=== PATIENT | female | born 1950 | race Caucasian/White ===

== ENCOUNTER 2017-08-10 12:41 | Outpatient (CLI) | payer MEDICARE ==
--- NOTE | 2017-08-10 15:40 | MRI ---
PRE AND POST CONTRAST ENHANCED MRI IMAGES OF THE BRAIN: History: Vertigo for three years. History of fall. Technique: Multiplanar, multisequence pre and post contrast enhanced MRI images were obtained of the brain. FINDINGS: Images demonstrate the brain to be unremarkable. No evidence of intracranial masses, hemorrhages, str okes or contusions seen. Ventricles are of normal size. Normal flow voids seen in the major intracranial vessels. IMPRESSION: Unremarkable pre and post contrast enhanced MR images of the brain. POS: [place]
== END 2017-08-10 12:42 | disposition home or self-care (01) ==
LOC: TBSIIMAG 12:41
PROVIDERS: ATTEND Psychiatry & Neurology Neurology
DX: R42 Dizziness and giddiness (principal)
CPT/HCPCS: 70553; 82565

== ENCOUNTER 2018-09-28 12:28 | Emergency (ER) | payer MEDICARE ==
[2018-09-28] MEDS ORDERED: Acetaminophen 500 MG TAB ONE (13:10)
--- NOTE | 2018-09-28 13:36 | RAD ---
2 VIEWS CHEST: Date: 09/28/18 PROVIDED CLINICAL HISTORY: Trauma. FINDINGS: Cardiac and mediastinal silhouette is within normal limits. No focal consolidation, pleural fluid, or pneumothorax apparent. Cholecystectomy clips overlie the right upper quadrant. IMPRESSION: No evidence for an acute cardiopulmonary process. POS: OFF
== END 2018-09-28 13:50 | disposition home or self-care (01) ==
LOC: ERS 12:28
DX: S29.012A Strain of muscle and tendon of back wall of thorax, initial encounter (principal); M19.90 Unspecified osteoarthritis, unspecified site; F32.9 Major depressive disorder, single episode, unspecified; E03.9 Hypothyroidism, unspecified; E66.9 Obesity, unspecified; E27.40 Unspecified adrenocortical insufficiency; V89.2XXA Person injured in unspecified motor-vehicle accident, traffic, initial encounter
CPT/HCPCS: 71046

== ENCOUNTER 2019-11-12 17:05 | Inpatient (IN) | payer MEDICARE, OTHER ==
--- NOTE | 2019-11-12 18:04 | RAD ---
Left hip 2 views HISTORY: Left hip pain. FINDINGS: Hip prosthesis in place without apparent hardware lucency. No acute fracture or dislocation . Extensive irregular pockets of soft tissue gas throughout the posterolateral tissues from the left la teral gluteal level, extending into the lateral aspect of the thigh. IMPRESSION : Soft tissue gas about the lateral aspect of the left hip and thigh. Infection? Left hip prosthesis.
--- NOTE | 2019-11-12 18:07 | RAD ---
Chest one view HISTORY: Fever. COMPARISON: 09/28/2018. FINDINGS: Cardiac silhouette is magnified by projection. Patient is slightly rotated rightward. Right hemidiaphragm is elevated. Linear and ill-defined parenchymal markings throughout the right mid dle and lower lobes. Left lung is well-inflated. IMPRESSION : Significant volume loss right lung base with elevation of the hemidiaphragm. Cause is not evident. In frahilar mass or mucus plugging with peripheral atelectasis must be considered.
[2019-11-12] MEDS ORDERED: Vancomycin 1 GM/200 ML BAG ONE (18:31)
[2019-11-12] MEDS ORDERED: Cefepime 2 GM VIAL ONE (18:31)
[2019-11-12 18:45] LABS: #Lymphocytes 2.9 thou/uL (1.20-3.40); #Monocytes 1.2 thou/uL (0.11-0.59); #Neutrophils 8.7 thou/uL (1.40-6.50); %Basophils 0.2 % (0.0-1.0); %Eosinophils 0.1 % (0.0-10.0); %Lymphocytes 22.8 % (21.0-51.0); %Monocytes 9.6 % (0.0-10.0); %Neutrophils 67.2 % (42.0-75.0); Hemoglobin 14.1 g/dL (12.0-16.0); Mean Corpuscular HGB CONC 34.7 g/dL (32.0-36.0); Mean Corpuscular Hemoglobin 29.9 pg (27.0-31.0); Mean Corpuscular Volume 86.1 fL (78.0-98.0); Mean Platelet Volume 7.8 fL (7.4-10.4); Platelet Count 278 thou/uL (130-400); RBC Distribution Width 13.1 % (11.5-14.5); Red Blood Cell (RBC) Count 4.71 mill/uL (4.20-5.40); White Blood Cell (WBC) Count 12.9 thou/uL (4.8-10.8)
[2019-11-12 19:09] LABS: Bacteria/HPF None Seen HPF (None Seen); Bilirubin Negative (Negative); Blood, Urine Trace (Negative); Clarity Clear (Clear); Glucose, Urine (Dipstick) Normal (Negative); Ketone, Urine Trace mg/dL (Negative); Leukocyte Negative Leu/uL (Negative); Mucous/LPF Rare LPF (<2+); Nitrite Negative (Negative); Protein, Urine (Dipstick) Negative (Neg-Trace); RBC/HPF 0-3 HPF (0-3); Specific Gravity, Urine 1.017 (1.002-1.036); Squamous Epithelial None Seen HPF (0-3); Urobilinogen Normal mg/dL (Less than 2); WBC/HPF 0-3 HPF (0-3)
[2019-11-12 19:12] LABS: ALT (SGPT) 30 U/L (8-55); AST (SGOT) 53 U/L (5-34); Albumin 3.5 g/dL (3.4-4.8); Alkaline Phosphatase 69 U/L (40-110); Anion Gap 11 mmol/L (10-20); BUN (Urea Nitrogen) 22 mg/dL (9.8-20.1); Bilirubin, Total 0.9 mg/dL (0.2-1.2); Calc. Creatinine Clearance 0 mL/min (70-130); Calcium 8.5 mg/dL (7.8-10.44); Carbon Dioxide 29 mmol/L (23-31); Chloride 98 mmol/L (98-107); Estimated GFR-MDRD 58; Globulin 2.9 g/dL (2.4-3.5); Glucose 88 mg/dL (83-110); Potassium 3.1 mmol/L (3.5-5.1); Protein, Total 6.4 g/dL (6.0-8.3); Sodium 135 mmol/L (136-145)
--- NOTE | 2019-11-12 19:32 | CT ---
CT chest noncontrast HISTORY: Chest pain. Abnormal radiograph. COMPARISON: Frontal radiograph from the same date. FINDINGS: Lungs are well-inflated. Minimal atelectasis at the right lower lobe, much less pronounced than suspected on recent radiograph. Right hemidiaphragm is only slightly elevated. No pleural fluid or pneumothorax. Lack of contrast limits evaluation of the soft tissues. No evidence of mediastinal adenopathy. Within the partially visualized upper abdomen, the gallbladder is surgically absent. Liver is diffuse ly hypodense. IMPRESSION : Very mild atelectasis at the right lung base. No pathologic process is apparent. Hepato-steatosis.
[2019-11-12 19:55] LABS: SARS-CoV-2 NAA Rapid Test Not Detected (NotDetected)
[2019-11-12] MEDS ORDERED: Potassium Chloride 20 MEQ TAB ONE (19:57)
[2019-11-12] MEDS ORDERED: Dextrose 50% Abboject 50 ML SYRINGE SLOW IVP PRN (21:51)
[2019-11-12] MEDS ORDERED: Dextrose 5% in Water 1,000 ML IV PRN (21:51)
--- NOTE | 2019-11-12 22:13 | PDOC.HHP ---
Hospitalist HPI - History of Present Illness Fever and falls History of Present Illness: Patient drowsy and responsive to name but unable to stay awake long enough to answer any questions. Lethargic and therefore history obtained form ED notes. She reportedly had a left hip replacement in [place] yesterday. At present she believes she is at [facility]. Patient had a fall today and told nurse she had slid down onto her bottom. Denies any head injury. EMS came to assist her with getting up and she refused transport to the ED. She had a second fall and was found on her right side. She was febrile with a temp of 100.1 and sats 92% on RA. She was brought in to the ED. ED Course: On initial presentation patient febrile with temp of 100.1 in ED an dsats 94% on RA. At one point sats dropped to 90% on RA. She was put on O2 and sats improved to 99% on 1L O2 by NC. CXR showed Significant volume loss right lung base with elevation of the hemidiaphragm. Cause is not evident. In frahilar mass or mucus plugging with peripheral atelectasis must be considered. CT chest showed Very mild atelectasis at the right lung base. No pathologic process is apparent. Hepato-steatosis. Left hip xray: Extensive irregular pockets of soft tissue gas throughout the posterolateral tissues from the left la teral gluteal level, extending into the lateral aspect of the thigh. Per ED Physician, Dr. Voss, there was more concern for HAP and changes on hip xray were more consistent with recent surgery rather than infection. He started IV antibiotics with Vanc/Cefepime. Labs notable for WCC 12. Lactic acid normal. Potassium low (3.1) and it was replaced with K-Dur. UA done was unremarkable. Hospitalist ROS - Review of Systems ROS unobtainable: due to mental status - Medication Medications: ALLERGIES: Phenothiazines CURRENT MEDICATIONS: Unable to obtain due to AMS Hospitalist History - Past Medical History Cardiac: reports: Hyperlipidemia EARLY CHILDHOOD ASSISTANT: reports: Vertigo Psych: reports: Depression Musculoskeletal: reports: Osteoarthritis Rheumatologic: reports: Fibromyalgia ENT: reports: Other (Glaucoma) Endocrine: reports: Hypothyroidism, Other ([place]'s) - Past Surgical History Past Surgical History: reports: Cholecystectomy, Cataract Removal, Total Hip Replacement (left hip replacement, 11/11/2019), Tonsillectomy - Family History Family History: reports: no pertinent history - Social History Smoking Status: Never smoker Alcohol: reports: None Drugs: reports: none - Exam General - other findings: Patient found sleeping, drowsy during assessment Eye - other findings: Rt eye: sclera erythematous, unable to open eye, slight lid edema ENT: normocephalic atraumatic, dry oral mucosa Neck: supple, no lymphadenopathy Heart: RRR, normal peripheral pulses Respiratory: CTAB, no tachypnea Gastrointestinal: soft, non-tender, non-distended, normal bowel sounds, no guarding, no rigidity Extremities: no edema Extremities - other findings: dressing over left hip, slight blistering/ erythema under tegaderm Skin - other findings: abrasions to left posterior hip region Neurological - other findings: not following commands, answers a couple of questions, difficult to assess Psychiatric: somnolent Psychiatric - other findings: AOx1, denies pain, responds to pain & loud voice Hospitalist Results - Labs Result Diagrams: 11/12/19 17:44 11/12/19 17:44 Lab results: WBC 12.9 thou/uL (4.8-10.8) H 11/12/19 17:44 Hgb 14.1 g/dL (12.0-16.0) 11/12/19 17:44 Hct 40.6 % (36.0-47.0) 11/12/19 17:44 MCV 86.1 fL (78.0-98.0) 11/12/19 17:44 Plt Count 278 thou/uL (130-400) 11/12/19 17:44 Neutrophils % 67.2 % (42.0-75.0) 11/12/19 17:44 Sodium 135 mmol/L (136-145) L 11/12/19 17:44 Potassium 3.1 mmol/L (3.5-5.1) L 11/12/19 17:44 Chloride 98 mmol/L (98-107) 11/12/19 17:44 Carbon Dioxide 29 mmol/L (23-31) 11/12/19 17:44 BUN 22 mg/dL (9.8-20.1) H 11/12/19 17:44 Creatinine 0.95 mg/dL (0.6-1.1) 11/12/19 17:44 Glucose 88 mg/dL (83-110) 11/12/19 17:44 Lactic Acid 1.4 mmol/L (0.5-2.2) 11/12/19 17:44 Calcium 8.5 mg/dL (7.8-10.44) 11/12/19 17:44 Total Bilirubin 0.9 mg/dL (0.2-1.2) 11/12/19 17:44 AST 53 U/L (5-34) H 11/12/19 17:44 ALT 30 U/L (8-55) 11/12/19 17:44 Alkaline Phosphatase 69 U/L (40-110) 11/12/19 17:44 Serum Total Protein 6.4 g/dL (6.0-8.3) 11/12/19 17:44 Albumin 3.5 g/dL (3.4-4.8) 11/12/19 17:44 Urine Ketones Trace mg/dL (Negative) A 11/12/19 18:25 Urine Blood Trace (Negative) A 11/12/19 18:25 Urine Nitrite Negative (Negative) 11/12/19 18:25 Ur Leukocyte Esterase Negative Rancho/uL (Negative) 11/12/19 18:25 Urine RBC 0-3 HPF (0-3) 11/12/19 18:25 Urine WBC 0-3 HPF (0-3) 11/12/19 18:25 Ur Squamous Epith Cells None Seen HPF (0-3) 11/12/19 18:25 Urine Bacteria None Seen HPF (None Seen) 11/12/19 18:25 - Radiology Interpretation CT scan - chest Status: report reviewed by de Hospitalist H&P A/P - Problem (1) Hypoxia Code(s): R09.02 - HYPOXEMIA Status: Acute (2) Fever Code(s): R50.9 - FEVER, UNSPECIFIED Status: Acute (3) AMS (altered mental status) Code(s): R41.82 - ALTERED MENTAL STATUS, UNSPECIFIED Status: Acute (4) Falls Code(s): W19.XXXA - UNSPECIFIED FALL, INITIAL ENCOUNTER Status: Acute (5) Redness of right eye Code(s): H57.89 - OTHER SPECIFIED DISORDERS OF EYE AND ADNEXA Status: Acute (6) Leukocytosis Code(s): D72.829 - ELEVATED WHITE BLOOD CELL COUNT, UNSPECIFIED Status: Acute (7) Status post left hip replacement Code(s): Z96.642 - PRESENCE OF LEFT ARTIFICIAL HIP JOINT Status: Acute (8) Hypokalemia Code(s): E87.6 - HYPOKALEMIA Status: Acute (9) Hypothyroidism Code(s): E03.9 - HYPOTHYROIDISM, UNSPECIFIED Status: Chronic (10) [place]'s disease Code(s): E27.1 - PRIMARY ADRENOCORTICAL INSUFFICIENCY Status: Chronic (11) Fibromyalgia Status: Chronic (12) Osteoarthritis Code(s): M19.90 - UNSPECIFIED OSTEOARTHRITIS, UNSPECIFIED SITE Status: Chronic (13) Hyperlipidemia Code(s): E78.5 - HYPERLIPIDEMIA, UNSPECIFIED Status: Chronic - Plan Plan: CT chest did not show definite evidence of pneumonia. Patient lethargic with no other source of infection. UA negative. Hip xray did show changes for possible infection however ED physician felt it was postop changes rather than infection of left hip. Day team to decide if further assessment indicated. Surgery was done yesterday at [facility]. For now she is on broad spectrum coverage with Vanc/Cefepime which we will continue. Given AMS and recent falls will obtain CT head. Will check CK. Check glucose (No known hx of DM) Obtain bladder scan to ensure no retention. Monitor O2 sats. Obtain ABG. Wound care consulted (blistering to left hip area, ?reaction due tegaderm) Reconcile home medications once verified, as appropriate Monitor electrolytes and replace as needed. GI Prophylaxis with famotidine. No pharmacoprophylaxis for DVT given recent surgery. Mechanical SCDs are in place. Discussed with attending who agrees with plan as above.
--- NOTE | 2019-11-12 22:29 | CT ---
CT head noncontrast HISTORY: Fall. Altered mental status. FINDINGS: There is no evidence of acute intracranial hemorrhage or infarct. Mild diffuse cortical atr ophy. There is no mass effect or shift of midline structures. Postoperative changes are apparent at the left lobe. Motion artifact limits detail. IMPRESSION : No acute intracranial abnormalities are demonstrated.
[2019-11-12 22:50] VITALS: BMI 32.0
[2019-11-12] MEDS ORDERED: Dextrose 50% Abboject 50 ML SYRINGE SLOW IVP SCH (23:15)
[2019-11-13] MEDS ORDERED: Magnesium Sulfate 2 GM in Sodium Chloride 0.9% 250 ML 250 ML IVPB SCH (03:00)
[2019-11-13] MEDS: Sodium Chloride 0.9% 1,000 ML IV SCH ×2 (03:04→19:17)
[2019-11-13] MEDS ORDERED: hydrALAZINE 20 MG/ML VIAL SLOW IVP PRN (03:52)
[2019-11-13 04:05] LABS: #Lymphocytes 3.3 thou/uL (1.20-3.40); #Monocytes 1.2 thou/uL (0.11-0.59); #Neutrophils 8.4 thou/uL (1.40-6.50); %Basophils 0.3 % (0.0-1.0); %Eosinophils 0.2 % (0.0-10.0); %Lymphocytes 25.8 % (21.0-51.0); %Monocytes 9.1 % (0.0-10.0); %Neutrophils 64.6 % (42.0-75.0); Hemoglobin 13.2 g/dL (12.0-16.0); Mean Corpuscular HGB CONC 31.3 g/dL (32.0-36.0); Mean Corpuscular Hemoglobin 26.7 pg (27.0-31.0); Mean Corpuscular Volume 85.1 fL (78.0-98.0); Mean Platelet Volume 7.3 fL (7.4-10.4); Platelet Count 291 thou/uL (130-400); Red Blood Cell (RBC) Count 4.95 mill/uL (4.20-5.40)
[2019-11-13 04:22] LABS: Lactic Acid 0.9 mmol/L (0.5-2.2)
[2019-11-13 04:26] LABS: Anion Gap 11 mmol/L (10-20); BUN (Urea Nitrogen) 12 mg/dL (9.8-20.1); Calc. Creatinine Clearance 85 mL/min (70-130); Calcium 8.5 mg/dL (7.8-10.44); Carbon Dioxide 26 mmol/L (23-31); Chloride 101 mmol/L (98-107); Estimated GFR-MDRD 70; Glucose 91 mg/dL (83-110); Magnesium 1.7 mg/dL (1.6-2.6); Potassium 3.3 mmol/L (3.5-5.1); Sodium 135 mmol/L (136-145)
[2019-11-13] MEDS: Acetaminophen 650 MG Suppository PR PRN ×2 (04:32→07:54)
[2019-11-13] MEDS: Cefepime 2 GM in Sodium Chloride 0.9% 100 ML IVPB SCH ×2 (06:30→19:12)
[2019-11-13] MEDS: Vancomycin 1 GM in Premix Bag 1 BAG IVPB SCH ×2 (07:54→19:59)
--- NOTE | 2019-11-13 12:52 | PDOC.HOSPP ---
- Subjective Encounter Date: 11/13/19 Encounter Time: 12:50 Subjective: pain related to hip surgery, thinks she is in withdrawal-states takes 300 mg/day tramadal - Objective Vital Signs & Weight: Vital Signs (12 hours) Temp Pulse Resp BP BP BP Pulse Ox 11/13/19 10:36 98.3 F 89 16 139/73 96 11/13/19 07:43 98.4 F 94 18 114/68 98 11/13/19 05:14 100.2 F H 132/48 L 11/13/19 04:32 85 183/65 H 11/13/19 03:43 100.3 F H 85 22 H 183/65 H 97 Weight Weight 186 lb 9.6 oz I&O: 11/12/19 11/13/19 11/14/19 06:59 06:59 06:59 Intake Total 300 Output Total 400 Balance -100 Result Diagrams: 11/13/19 03:57 11/13/19 03:57 Additional Labs: Accuchecks 11/13/19 11/12/19 06:27 21:49 POC Glucose 89 84 Hospitalist ROS - Medication Medications: Active Medications Generic Name Dose Route Start Last Admin Trade Name Freq PRN Reason Stop Dose Admin Acetaminophen 650 mg 11/13/19 03:57 11/13/19 07:54 Tylenol [place] 650 mg Q4H PRN Administration Headache/Fever/ MILD Pain 1-3 Hydralazine HCl 10 mg 11/13/19 03:52 11/13/19 04:32 Apresoline SLOW IVP 10 mg Q4H PRN Administration SBP Greater Than 180 Cefepime HCl 2 gm/ Sodium 100 mls @ 200 mls/hr 11/13/19 06:00 11/13/19 06:30 Chloride IVPB 100 mls 0600,1800 AMISHA Administration Vancomycin HCl 1 gm/ Device 200 mls @ 200 mls/hr 11/13/19 08:00 11/13/19 07: 54 IVPB 200 mls 0800,2000 AMISHA Administration Sodium Chloride 1,000 mls @ 70 mls/hr 11/13/19 03:00 11/13/19 03:04 Normal Saline 0.9% IV 1,000 mls .[id number] AMISHA Administration - Exam General Appearance: awake alert Neck: no JVD Heart: RRR, no murmur Respiratory: CTAB Gastrointestinal: soft, non-distended, normal bowel sounds Extremities: 1+ LE edema Hosp A/P (1) Fever Code(s): R50.9 - FEVER, UNSPECIFIED Status: Acute (2) Hypokalemia Code(s): E87.6 - HYPOKALEMIA Status: Acute (3) Hypoxia Code(s): R09.02 - HYPOXEMIA Status: Acute (4) Status post left hip replacement Code(s): Z96.642 - PRESENCE OF LEFT ARTIFICIAL HIP JOINT Status: Acute (5) [place]'s disease Code(s): E27.1 - PRIMARY ADRENOCORTICAL INSUFFICIENCY Status: Chronic (6) Hyperlipidemia Code(s): E78.5 - HYPERLIPIDEMIA, UNSPECIFIED Status: Chronic Qualifiers: Hyperlipidemia type: unspecified Qualified Code(s): E78.5 - Hyperlipidemia , unspecified (7) Hypothyroidism Code(s): E03.9 - HYPOTHYROIDISM, UNSPECIFIED Status: Chronic Qualifiers: Hypothyroidism type: unspecified Qualified Code(s): E03.9 - Hypothyroidism , unspecified (8) Falls Code(s): W19.XXXA - UNSPECIFIED FALL, INITIAL ENCOUNTER Status: Acute Qualifiers: Encounter type: initial encounter Qualified Code(s): W19.XXXA - Unspecified fall, initial encounter - Plan fever, unknown site, on antibx post op stat, D-dimer, posss CTA addisons, missed meds-bolus solu-crteff start home meds takes more tramadal than RX-start q 6h po if tolerates
[2019-11-13] MEDS ORDERED: Hydrocortisone Sod Succ/PF 100 mg/2 ml Vial IVP SCH (13:00)
[2019-11-13] MEDS: Acetaminophen 325 MG TAB PO PRN (13:49)
[2019-11-13] MEDS: traMADol HCl 50 MG TAB PO PRN ×2 (13:49→19:58)
[2019-11-13] MEDS: Hydrocortisone 10 mg Tablet PO SCH (19:57)
[2019-11-13] MEDS: Brinzolamide 1% Ophth SUSP 10 ml Bottle EA EYE SCH (19:58)
[2019-11-14] MEDS ORDERED: Ketorolac Tromethamine 30 MG/ML VIAL IM SCH (01:45)
[2019-11-14] MEDS ORDERED: Cyclobenzaprine 10 MG TAB PO SCH (01:45)
[2019-11-14] MEDS: Sodium Chloride 0.9% 1,000 ML IV SCH ×4 (02:06→22:17)
[2019-11-14] MEDS: traMADol HCl 50 MG TAB PO PRN ×3 (05:04→22:16)
[2019-11-14] MEDS: Levothyroxine Sodium 25 MCG TAB PO SCH (05:05)
[2019-11-14] MEDS: Cefepime 2 GM in Sodium Chloride 0.9% 100 ML IVPB SCH ×2 (05:05→18:50)
[2019-11-14] MEDS: Levothyroxine Sodium 112 MCG TAB PO SCH (05:05)
[2019-11-14 05:06] LABS: #Lymphocytes 1.4 thou/uL (1.20-3.40); #Monocytes 0.8 thou/uL (0.11-0.59); #Neutrophils 10.6 thou/uL (1.40-6.50); %Basophils 0.1 % (0.0-1.0); %Eosinophils 0.1 % (0.0-10.0); %Lymphocytes 10.6 % (21.0-51.0); %Monocytes 6.5 % (0.0-10.0); %Neutrophils 82.6 % (42.0-75.0); Hemoglobin 12.5 g/dL (12.0-16.0); Mean Corpuscular HGB CONC 32.9 g/dL (32.0-36.0); Mean Corpuscular Hemoglobin 27.9 pg (27.0-31.0); Mean Corpuscular Volume 84.8 fL (78.0-98.0); Mean Platelet Volume 7.7 fL (7.4-10.4); Platelet Count 284 thou/uL (130-400); RBC Distribution Width 12.7 % (11.5-14.5); Red Blood Cell (RBC) Count 4.49 mill/uL (4.20-5.40); White Blood Cell (WBC) Count 12.8 thou/uL (4.8-10.8)
[2019-11-14 05:21] LABS: Anion Gap 11 mmol/L (10-20); BUN (Urea Nitrogen) 7 mg/dL (9.8-20.1); Calc. Creatinine Clearance 97 mL/min (70-130); Calcium 8.1 mg/dL (7.8-10.44); Carbon Dioxide 28 mmol/L (23-31); Chloride 101 mmol/L (98-107); Estimated GFR-MDRD 81; Glucose 120 mg/dL (83-110); Potassium 3.2 mmol/L (3.5-5.1); Sodium 137 mmol/L (136-145)
[2019-11-14] MEDS: Vancomycin 1 GM in Premix Bag 1 BAG IVPB SCH ×2 (08:06→17:24)
[2019-11-14] MEDS: Losartan 25 MG TAB PO SCH (08:11)
[2019-11-14] MEDS: Fludrocortisone Acetate 0.1 MG TAB PO SCH (08:11)
[2019-11-14] MEDS: Hydrocortisone 10 mg Tablet PO SCH ×4 (08:12→22:18)
[2019-11-14] MEDS ORDERED: Electrolyte Replacement Protocol FS PRN (11:30)
[2019-11-14] MEDS ORDERED: Potassium Chloride 20 MEQ TAB PO SCH (11:30)
--- NOTE | 2019-11-14 11:37 | PDOC.HOSPP ---
- Subjective Encounter Date: 11/14/19 Encounter Time: 11:30 Subjective: f/u for metabolic encephalopathy and fever with suspected UTI on Cefepime/ Vancomycin. States feeling better overall except for hip pain. - Objective Vital Signs & Weight: Vital Signs (12 hours) Temp Pulse Resp BP Pulse Ox 11/14/19 11:16 98.4 F 83 18 136/54 L 94 L 11/14/19 07:22 98.5 F 62 18 150/67 H 95 11/14/19 04:32 98.2 F 77 18 166/67 H 100 11/13/19 23:45 98.5 F 80 18 149/68 H 94 L Weight Weight 186 lb 9.6 oz I&O: 11/13/19 11/14/19 11/15/19 06:59 06:59 06:59 Intake Total 300 1990 Output Total 400 2725 Balance -100 -775 Result Diagrams: 11/14/19 04:53 11/14/19 04:53 Additional Labs: Accuchecks 11/14/19 11/14/19 11/13/19 11:28 05:12 22:17 POC Glucose 150 H 117 H 193 H 11/13/19 18:49 POC Glucose 114 H Microbiology 11/12/19 18:25 Urine Straight Catheter Urine Culture - Preliminary Escherichia coli 11/12/19 17:44 Venous blood - Right Hand Blood Culture - Preliminary Specimen has been received and culture in progress. No Growth to date. 11/12/19 17:44 Venous blood - Left Arm Blood Culture - Preliminary Specimen has been received and culture in progress. No Growth to date. Laboratory Tests 11/12/19 11/12/19 11/13/19 17:44 18:05 03:57 WBC 12.9 H 13.0 H D-Dimer SARS-CoV-2 Rap RNA(RT-PCR) Not Detected 11/13/19 13:06 WBC D-Dimer 1.66 H SARS-CoV-2 Rap RNA(RT-PCR) Radiology Reviewed by me: Yes (CT brain - no acute process) Hospitalist ROS - Medication Medications: Active Medications Generic Name Dose Route Start Last Admin Trade Name Freq PRN Reason Stop Dose Admin Acetaminophen 650 mg 11/13/19 03:52 11/13/19 13:49 Tylenol PO 650 mg Q4H PRN Administration Headache/Fever/ MILD Pain 1-3 Acetaminophen 650 mg 11/13/19 03:57 11/13/19 07:54 Tylenol [place] 650 mg Q4H PRN Administration Headache/Fever/ MILD Pain 1-3 Brinzolamide 1 drop 11/13/19 21:00 11/13/19 19:58 Azopt 1% Ophth Susp EA EYE 1 drop BID AMISHA Administration Fludrocortisone Acetate 0.1 mg 11/14/19 09:00 11/14/19 08:11 Florinef PO 0.1 mg QAM AMISHA Administration Hydralazine HCl 10 mg 11/13/19 03:52 11/13/19 04:32 Apresoline SLOW IVP 10 mg Q4H PRN Administration SBP Greater Than 180 Hydrocortisone 10 mg 11/14/19 09:00 11/14/19 08:12 Cortef PO 10 mg DAILY AMISHA Administration Hydrocortisone 20 mg 11/13/19 21:00 11/14/19 08:12 Cortef PO 20 mg BID AMISHA Administration Cefepime HCl 2 gm/ Sodium 100 mls @ 200 mls/hr 11/13/19 06:00 11/14/19 05:05 Chloride IVPB 100 mls 0600,1800 AMISHA Administration Vancomycin HCl 1 gm/ Device 200 mls @ 200 mls/hr 11/13/19 08:00 11/14/19 08: 06 IVPB 200 mls 0800,2000 AMISHA Administration Sodium Chloride 1,000 mls @ 70 mls/hr 11/13/19 03:00 11/14/19 08:19 Normal Saline 0.9% IV Not Given .[id number] AMISHA Levothyroxine Sodium 112 mcg 11/14/19 06:00 11/14/19 05:05 Synthroid PO 112 mcg 0600 AMISHA Administration Levothyroxine Sodium 25 mcg 11/14/19 06:00 11/14/19 05:05 Synthroid PO 25 mcg 0600 AMISHA Administration Losartan Potassium 50 mg 11/14/19 09:00 11/14/19 08:11 Cozaar PO 50 mg DAILY AMISHA Administration Pantoprazole Sodium 40 mg 11/14/19 09:00 11/14/19 08:11 Protonix PO 40 mg DAILY AMISHA Administration Tramadol HCl 50 mg 11/13/19 12:49 11/14/19 05:04 Ultram PO 50 mg Q6H PRN Administration Mild-Moderate Pain (1-5) - Exam General Appearance: NAD, awake alert Eye: PERRL, anicteric sclera ENT: normocephalic atraumatic, no oropharyngeal lesions Neck: supple, symmetric, no JVD, no thyromegaly, no lymphadenopathy Heart: RRR, no murmur, no gallops, no rubs, normal peripheral pulses Heart - other findings: S1, S2 Respiratory: CTAB, no wheezes, no rales, no ronchi, normal chest expansion Gastrointestinal: soft, non-tender, non-distended, normal bowel sounds, no palpable masses Extremities: no cyanosis, no clubbing, no edema Extremities - other findings: L hip with post-surgical changes and dressing in place Skin: normal turgor Neurological: cranial nerve grossly intact, no new deficit Musculoskeletal: normal tone, generalized weakness Psychiatric: normal affect, A&O x 3 Hosp A/P (1) Acute metabolic encephalopathy Code(s): G93.41 - METABOLIC ENCEPHALOPATHY Status: Acute Plan: Likely due to febrile illness, continue empiric Cefepime/Vancomycin another 24h , supportive mgmt (2) Fever Code(s): R50.9 - FEVER, UNSPECIFIED Status: Acute Plan: Febrile illness post L- total hip arthroplasty, see #1 above (3) Falls Code(s): W19.XXXA - UNSPECIFIED FALL, INITIAL ENCOUNTER Status: Acute Qualifiers: Encounter type: initial encounter Qualified Code(s): W19.XXXA - Unspecified fall, initial encounter (4) Hypokalemia Code(s): E87.6 - HYPOKALEMIA Status: Acute Plan: KCL replacement, serial monitoring (5) Status post left hip replacement Code(s): Z96.642 - PRESENCE OF LEFT ARTIFICIAL HIP JOINT Status: Acute (6) [place]'s disease Code(s): E27.1 - PRIMARY ADRENOCORTICAL INSUFFICIENCY Status: Chronic Plan: Continue Florinef/Hydrocortisone (7) Hypothyroidism Code(s): E03.9 - HYPOTHYROIDISM, UNSPECIFIED Status: Chronic Qualifiers: Hypothyroidism type: unspecified Qualified Code(s): E03.9 - Hypothyroidism , unspecified - Plan continue antibiotics, PT/OT, elementary school social worker, incentive spirometry, DVT proph w/ SCDs Stable currently Continue Cefepime/Vancomycin OOB with PT Continue Hydrocortisone/Florinef CM for SNF options AM lab: BMP, CBC
[2019-11-14] MEDS: Acetaminophen 325 MG TAB PO PRN (12:07)
[2019-11-14] MEDS: Brinzolamide 1% Ophth SUSP 10 ml Bottle EA EYE SCH ×2 (12:36→22:17)
[2019-11-15] MEDS: Vancomycin 1 GM in Premix Bag 1 BAG IVPB SCH ×3 (00:29→16:32)
[2019-11-15] MEDS: Acetaminophen 325 MG TAB PO PRN ×4 (00:29→20:29)
[2019-11-15] MEDS ORDERED: Cyclobenzaprine 10 MG TAB PO SCH (03:45)
[2019-11-15] MEDS: Cefepime 2 GM in Sodium Chloride 0.9% 100 ML IVPB SCH ×2 (05:23→21:30)
[2019-11-15] MEDS: Levothyroxine Sodium 25 MCG TAB PO SCH (05:23)
[2019-11-15] MEDS: Levothyroxine Sodium 112 MCG TAB PO SCH (05:23)
[2019-11-15 07:36] LABS: #Lymphocytes 1.6 thou/uL (1.20-3.40); #Monocytes 0.8 thou/uL (0.11-0.59); #Neutrophils 7.6 thou/uL (1.40-6.50); %Basophils 0.2 % (0.0-1.0); %Eosinophils 0.1 % (0.0-10.0); %Lymphocytes 15.6 % (21.0-51.0); %Monocytes 7.9 % (0.0-10.0); %Neutrophils 76.2 % (42.0-75.0); Hemoglobin 11.1 g/dL (12.0-16.0); Mean Corpuscular HGB CONC 32.7 g/dL (32.0-36.0); Mean Corpuscular Hemoglobin 28.5 pg (27.0-31.0); Mean Corpuscular Volume 87.1 fL (78.0-98.0); Mean Platelet Volume 7.5 fL (7.4-10.4); Platelet Count 301 thou/uL (130-400); Red Blood Cell (RBC) Count 3.91 mill/uL (4.20-5.40); White Blood Cell (WBC) Count 9.9 thou/uL (4.8-10.8)
[2019-11-15 07:54] LABS: Vancomycin, Trough 19.5 ug/mL
[2019-11-15 07:56] LABS: Anion Gap 11 mmol/L (10-20); BUN (Urea Nitrogen) 11 mg/dL (9.8-20.1); Calc. Creatinine Clearance 100 mL/min (70-130); Calcium 7.9 mg/dL (7.8-10.44); Carbon Dioxide 24 mmol/L (23-31); Chloride 108 mmol/L (98-107); Estimated GFR-MDRD 84; Glucose 107 mg/dL (83-110); Potassium 3.6 mmol/L (3.5-5.1); Sodium 139 mmol/L (136-145)
[2019-11-15] MEDS: Brinzolamide 1% Ophth SUSP 10 ml Bottle EA EYE SCH ×2 (08:01→20:08)
[2019-11-15] MEDS: Fludrocortisone Acetate 0.1 MG TAB PO SCH (08:02)
[2019-11-15] MEDS: Losartan 25 MG TAB PO SCH (08:02)
[2019-11-15] MEDS: Hydrocortisone 10 mg Tablet PO SCH ×2 (08:47→20:08)
[2019-11-15] MEDS: traMADol HCl 50 MG TAB PO PRN ×3 (09:00→20:29)
--- NOTE | 2019-11-15 12:46 | PQF ---
Q55 2019 [facility] Updated: CLINICAL DOCUMENTATION CLARIFICATION FORM: Dear Dr. ALANA POWERS Date: 11-15-19 Please exercise your independent, professional judgment in responding to the clarification form. Clinical indicators are provided on the bottom of this form for your review. Please check appropriate box(es) to clarify if the following diagnosis has been ruled in our ruled out: PNEUMONIA [ ] Ruled in diagnosis [ ] Continue to treat [ ] Resolved [ x ] Ruled out diagnosis [ ] Other diagnosis [ ] Unable to determine In addition, please specify: Present on Admission (POA): [ ] Yes [ x ] No [ ] Unable to determine For continuity of documentation, please document condition throughout progress notes and discharge summary. Thank You. To be completed by CDI/Coding staff for physician review: CLINICAL INDICATORS - SIGNS / SYMPTOMS / LABS / RESULTS AND LOCATION IN MR: ER DX 11-12-19: POSTOPERATIVE PAIN S/P L HIP REPLACEMENT, ACUTE FEBRILE ILLNESS, DALL, PNEUMONIA H&P 11-12-19: TEMP 100.1 AND DSATS 94% ON RA, AT ONE POINT SATS DROPPED TO 90% ON RA; CT OF CHEST DID NOT SHOW DEFINITE EVIDENCE OF PNEUMONIA. RISK FACTORS / RESULTS AND LOCATION IN MR: H&P 11-12-19: TEMP 100.1 AND DSATS 94% ON RA, AT ONE POINT SATS DROPPED TO 90% ON RA; PATIENT DROWSY, LETHARGIC, HAD LEFT HIP REPLACEMENT IN [place] YESTERDAY. TREATMENTS / RESULTS AND LOCATION IN MR: H&P 11-12-19: SHE WAS PUT ON O2 AND SATS IMPROVED TO 99% ON 1L O2 BY NC 11-14-19: VANCOMYCIN IV, MAXIPIME IV CDS Signature: Linda Martin Phone #: [phone] Date: This is a permanent part of the Medical Record [facility]
[2019-11-15] MEDS: Sodium Chloride 0.9% 1,000 ML IV SCH (14:27)
--- NOTE | 2019-11-15 17:37 | PDOC.HOSPP ---
- Subjective Encounter Date: 11/15/19 Encounter Time: 17:25 Subjective: f/u for metabolic encephalopathy with suspected UTI on Cefepime currently. Feels better overall. Appetite improved. - Objective Vital Signs & Weight: Vital Signs (12 hours) Temp Pulse Resp BP BP Pulse Ox 11/15/19 16:09 98.2 F 63 18 154/61 H 97 11/15/19 11:11 98.4 F 58 L 18 151/61 H 94 L 11/15/19 07:40 98.7 F 60 16 122/52 L 98 Weight Weight 186 lb 9.6 oz I&O: 11/14/19 11/15/19 11/16/19 06:59 06:59 06:59 Intake Total 19895 1640 Output Total 2721 1050 1250 Balance -735 825 390 Result Diagrams: 11/15/19 07:23 11/15/19 07:23 Additional Labs: Accuchecks 11/15/19 11/14/19 05:43 20:20 POC Glucose 142 H 121 H Microbiology 11/12/19 18:25 Urine Straight Catheter Urine Culture - Preliminary Escherichia coli 11/12/19 17:44 Venous blood - Right Hand Blood Culture - Preliminary Specimen has been received and culture in progress. No Growth to date. 11/12/19 17:44 Venous blood - Left Arm Blood Culture - Preliminary Specimen has been received and culture in progress. No Growth to date. Laboratory Tests 11/12/19 11/12/19 11/13/19 17:44 18:05 03:57 WBC 12.9 H 13.0 H D-Dimer SARS-CoV-2 Rap RNA(RT-PCR) Not Detected 11/13/19 13:06 WBC D-Dimer 1.66 H SARS-CoV-2 Rap RNA(RT-PCR) Hospitalist ROS - Medication Medications: Active Medications Generic Name Dose Route Start Last Admin Trade Name Freq PRN Reason Stop Dose Admin Acetaminophen 650 mg 11/13/19 03:52 11/15/19 14:17 Tylenol PO 650 mg Q4H PRN Administration Headache/Fever/ MILD Pain 1-3 Acetaminophen 650 mg 11/13/19 03:57 11/13/19 07:54 Tylenol SD 650 mg Q4H PRN Administration Headache/Fever/ MILD Pain 1-3 Brinzolamide 1 drop 11/13/19 21:00 11/15/19 08:01 Azopt 1% Ophth Susp EA EYE 1 drop BID AMISHA Administration Fludrocortisone Acetate 0.1 mg 11/14/19 09:00 11/15/19 08:02 Florinef PO 0.1 mg QAM AMISHA Administration Hydralazine HCl 10 mg 11/13/19 03:52 11/13/19 04:32 Apresoline SLOW IVP 10 mg Q4H PRN Administration SBP Greater Than 180 Hydrocortisone 10 mg 11/14/19 09:00 11/14/19 22:17 Cortef PO 10 mg DAILY AMISHA Administration Hydrocortisone 20 mg 11/13/19 21:00 11/15/19 08:47 Cortef PO 20 mg BID AMISHA Administration Cefepime HCl 2 gm/ Sodium 100 mls @ 200 mls/hr 11/13/19 06:00 11/15/19 05:23 Chloride IVPB 100 mls 0600,1800 AMISHA Administration Sodium Chloride 1,000 mls @ 70 mls/hr 11/13/19 03:00 11/15/19 14:27 Normal Saline 0.9% IV 1,000 mls .[id number] AMISHA Administration Vancomycin HCl 1 gm/ Device 200 mls @ 200 mls/hr 11/14/19 16:00 11/15/19 16: 32 IVPB 200 mls 0800,1600,2359 AMISHA Administration Levothyroxine Sodium 112 mcg 11/14/19 06:00 11/15/19 05:23 Synthroid PO 112 mcg 0600 AMISHA Administration Levothyroxine Sodium 25 mcg 11/14/19 06:00 11/15/19 05:23 Synthroid PO 25 mcg 0600 AMISHA Administration Losartan Potassium 50 mg 11/14/19 09:00 11/15/19 08:02 Cozaar PO 50 mg DAILY AMISHA Administration Pantoprazole Sodium 40 mg 11/14/19 09:00 11/15/19 08:02 Protonix PO 40 mg DAILY AMISHA Administration Tramadol HCl 50 mg 11/13/19 12:49 11/15/19 14:15 Ultram PO 50 mg Q6H PRN Administration Mild-Moderate Pain (1-5) - Exam General Appearance: NAD, awake alert Eye: PERRL, anicteric sclera ENT: normocephalic atraumatic ENT - other findings: scattered crusting lesions on lips Neck: supple, symmetric, no JVD, no thyromegaly, no lymphadenopathy Heart: RRR, no murmur, no gallops, no rubs, normal peripheral pulses Heart - other findings: S1, S2 Respiratory: CTAB, no wheezes, no rales, no ronchi, normal chest expansion Gastrointestinal: soft, non-tender, non-distended, normal bowel sounds, no palpable masses Extremities: no cyanosis Extremities - other findings: L hip with post-surgical changes Skin: normal turgor, no lesions Neurological: cranial nerve grossly intact, no new deficit Musculoskeletal: normal tone, generalized weakness Psychiatric: normal affect, A&O x 3 Hosp A/P (1) Acute metabolic encephalopathy Code(s): G93.41 - METABOLIC ENCEPHALOPATHY Status: Acute Plan: Resolved, continue supportive mgmt (2) Fever Code(s): R50.9 - FEVER, UNSPECIFIED Status: Acute Plan: Resolved, continue Cefepime another 24h (3) Falls Code(s): W19.XXXA - UNSPECIFIED FALL, INITIAL ENCOUNTER Status: Acute Qualifiers: Encounter type: initial encounter Qualified Code(s): W19.XXXA - Unspecified fall, initial encounter Plan: PT for outpt therapy at home (4) Hypokalemia Code(s): E87.6 - HYPOKALEMIA Status: Acute (5) Status post left hip replacement Code(s): Z96.642 - PRESENCE OF LEFT ARTIFICIAL HIP JOINT Status: Acute Plan: Outpt PT with HH (6) [place]'s disease Code(s): E27.1 - PRIMARY ADRENOCORTICAL INSUFFICIENCY Status: Chronic (7) Hypothyroidism Code(s): E03.9 - HYPOTHYROIDISM, UNSPECIFIED Status: Chronic Qualifiers: Hypothyroidism type: unspecified Qualified Code(s): E03.9 - Hypothyroidism , unspecified - Plan continue antibiotics, PT/OT, child protective services social worker, out of bed/ambulate, DVT proph w/ SCDs Stable currently Continue Cefepime D/C Vancomycin OOB with PT Continue Hydrocortisone/Florinef Acyclovir ointment 5x's/day Plan for HH with PT Likely home in 24-48h
[2019-11-15] MEDS: Acyclovir 5% Oint. 15 GM TUBE TOP SCH ×2 (20:09→23:27)
[2019-11-15] MEDS ORDERED: Melatonin 3 MG TAB PO PRN (23:06)
[2019-11-16] MEDS: Sodium Chloride 0.9% 1,000 ML IV SCH (01:46)
[2019-11-16] MEDS: Levothyroxine Sodium 25 MCG TAB PO SCH (05:20)
[2019-11-16] MEDS: Levothyroxine Sodium 112 MCG TAB PO SCH (05:20)
[2019-11-16] MEDS: traMADol HCl 50 MG TAB PO PRN ×2 (05:28→12:39)
[2019-11-16] MEDS: Acetaminophen 325 MG TAB PO PRN ×2 (05:28→12:39)
[2019-11-16 07:31] LABS: Vancomycin, Trough 13.1 ug/mL
[2019-11-16] MEDS: Losartan 25 MG TAB PO SCH (08:49)
[2019-11-16] MEDS: Fludrocortisone Acetate 0.1 MG TAB PO SCH (08:49)
[2019-11-16] MEDS: Hydrocortisone 10 mg Tablet PO SCH ×2 (08:50)
[2019-11-16] MEDS: Brinzolamide 1% Ophth SUSP 10 ml Bottle EA EYE SCH (08:51)
[2019-11-16] MEDS ORDERED: Cefepime 2 GM in Sodium Chloride 0.9% 100 ML IVPB SCH (09:00)
[2019-11-16] MEDS: Acyclovir 5% Oint. 15 GM TUBE TOP SCH ×3 (09:07→17:15)
--- NOTE | 2019-11-16 11:40 | PDOC.HOSPP ---
- Subjective Encounter Date: 11/16/19 Encounter Time: 08:30 Subjective: Patient seen and examined. No new complaints. No overnight events - Objective Vital Signs & Weight: Vital Signs (12 hours) Temp Pulse Resp BP Pulse Ox 11/16/19 07:24 98.6 F 54 L 20 169/75 H 97 11/16/19 04:01 98.1 F 53 L 16 164/66 H 95 Weight Weight 186 lb 9.6 oz I&O: 11/15/19 11/16/19 11/17/19 06:59 06:59 06:59 Intake Total 1875 4940 Output Total 1050 5225 Balance 825 -285 Result Diagrams: 11/15/19 07:23 11/15/19 07:23 Hospitalist ROS - Review of Systems ENT: denies: ear pain, ear discharge, nose pain, nose discharge, nose congestion , mouth pain, mouth swelling, throat pain, throat swelling, other Respiratory: denies: cough, dry, shortness of breath, hemoptysis, SOB with excertion, pleuritic pain, sputum, wheezing, other Cardiovascular: denies: chest pain, palpitations, orthopnea, paroxysmal noc. dyspnea, edema, light headedness, other Gastrointestinal: denies: nausea, vomiting, abdominal pain, diarrhea, constipation, melena, hematochezia, other Genitourinary: denies: dysuria, frequency, incontinence, hematuria, retention, other Musculoskeletal: denies: neck pain, shoulder pain, arm pain, back pain, hand pain, leg pain, foot pain, other - Medication Medications: Active Medications Generic Name Dose Route Start Last Admin Trade Name Jadq PRN Reason Stop Dose Admin Acetaminophen 650 mg 11/13/19 03:52 11/16/19 05:28 Tylenol PO 650 mg Q4H PRN Administration Headache/Fever/ MILD Pain 1-3 Acetaminophen 650 mg 11/13/19 03:57 11/13/19 07:54 Tylenol OR 650 mg Q4H PRN Administration Headache/Fever/ MILD Pain 1-3 Acyclovir 0 gm 11/15/19 20:00 11/16/19 09:07 Zovirax 5% Ointment TOP Not Given 5XD AIMSHA Brinzolamide 1 drop 11/13/19 21:00 11/16/19 08:51 Azopt 1% Ophth Susp EA EYE 1 drop BID AMISHA Administration Fludrocortisone Acetate 0.1 mg 11/14/19 09:00 11/16/19 08:49 Florinef PO 0.1 mg QAM AMISHA Administration Hydralazine HCl 10 mg 11/13/19 03:52 11/13/19 04:32 Apresoline SLOW IVP 10 mg Q4H PRN Administration SBP Greater Than 180 Hydrocortisone 10 mg 11/14/19 09:00 11/16/19 08:50 Cortef PO 10 mg DAILY AMISHA Administration Hydrocortisone 20 mg 11/13/19 21:00 11/16/19 08:50 Cortef PO 20 mg BID AMISHA Administration Levothyroxine Sodium 112 mcg 11/14/19 06:00 11/16/19 05:20 Synthroid PO 112 mcg 0600 AMISHA Administration Levothyroxine Sodium 25 mcg 11/14/19 06:00 11/16/19 05:20 Synthroid PO 25 mcg 0600 AMISHA Administration Losartan Potassium 50 mg 11/14/19 09:00 11/16/19 08:49 Cozaar PO 50 mg DAILY AMISHA Administration Melatonin 3 mg 11/15/19 23:06 11/15/19 23:35 Melatonin PO 3 mg HS PRN Administration Insomnia Pantoprazole Sodium 40 mg 11/14/19 09:00 11/16/19 08:49 Protonix PO 40 mg DAILY AMISHA Administration Tramadol HCl 50 mg 11/13/19 12:49 11/16/19 05:28 Ultram PO 50 mg Q6H PRN Administration Mild-Moderate Pain (1-5) - Exam General Appearance: NAD, awake alert Eye: PERRL, anicteric sclera ENT: normocephalic atraumatic, no oropharyngeal lesions Neck: supple, symmetric, no JVD Heart: RRR, no murmur, no gallops Respiratory: CTAB, no wheezes, no rales Gastrointestinal: soft, non-tender, non-distended, normal bowel sounds Extremities: no cyanosis, no clubbing Skin: normal turgor, no lesions Neurological: no focal deficits Musculoskeletal: normal tone, normal strength Psychiatric: normal affect, normal behavior Hosp A/P (1) Acute metabolic encephalopathy Code(s): G93.41 - METABOLIC ENCEPHALOPATHY Status: Acute (2) Status post left hip replacement Code(s): Z96.642 - PRESENCE OF LEFT ARTIFICIAL HIP JOINT Status: Acute (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 Status: Chronic (4) Fibromyalgia Status: Chronic (5) Hyperlipidemia Code(s): E78.5 - HYPERLIPIDEMIA, UNSPECIFIED Status: Chronic Qualifiers: Hyperlipidemia type: unspecified Qualified Code(s): E78.5 - Hyperlipidemia , unspecified (6) Hypothyroidism Code(s): E03.9 - HYPOTHYROIDISM, UNSPECIFIED Status: Chronic Qualifiers: Hypothyroidism type: unspecified Qualified Code(s): E03.9 - Hypothyroidism , unspecified (7) Osteoarthritis Code(s): M19.90 - UNSPECIFIED OSTEOARTHRITIS, UNSPECIFIED SITE Status: Chronic - Plan old records reviewed/req, continue antibiotics, PT/OT, social services counselor Patient is clinically stable, she is on room air, ambulatory, patient will need home health for her physical deconditioning and that so I will consult family independence case manager for home health arrangement upon discharge, will change antibiotic to Omnicef 300 mg twice daily for another 7 days. Patient is medically stable for discharge later on today.
[2019-11-16 17:18] VITALS: BP 177/65; TEMP 98.9
[2019-11-16] MEDS ORDERED: Cefdinir 300 MG CAP PO SCH (21:00)
--- NOTE | 2019-11-17 06:35 | DIS ---
DATE OF ADMISSION: 11/12/2019 DATE OF DISCHARGE: 11/16/2019 PRIMARY CARE PHYSICIAN: [facility] Call Admission, Dr. Bang Reyes. DISCHARGE DISPOSITION: Home. PRIMARY DISCHARGE DIAGNOSES: 1. Acute metabolic encephalopathy, resolved. 2. Hypokalemia, replaced. 3. Physical weakness. 4. Urinary tract infection. SECONDARY DISCHARGE DIAGNOSES: Hypothyroidism, Dickens disease, history of recent left hip replacement. PRIMARY PROCEDURE/OPERATION: None. RADIOLOGICAL INVESTIGATION: Hip x-ray showed postoperative changes. Chest x-ray showed no acute cardiopulmonary process other than atelectasis. CT chest reported atelectasis of right lung base. CT brain negative for any acute intracranial process. SIGNIFICANT LABORATORY DATA: WBC 9.9, hemoglobin 11.1, platelets 301. D-dimer 1.66. Sodium 139, creatinine 0.69, calcium 7.9. Urinalysis unremarkable. COVID-19 negative. Urine culture grew E coli. Blood culture negative. DISCHARGE MEDICATIONS: 1. Omnicef 300 mg p.o. twice daily for 7 days. 2. Tramadol 50 mg q.6 hourly p.r.n. 3. Azopt ophthalmic drops b.i.d. 4. Celexa 20 mg daily. 5. Florinef 0.1 mg daily. 6. Gabapentin 300 mg p.o. b.i.d. 7. Hydrocortisone 20 mg b.i.d. and 10 mg daily. 8. Vascepa 2 g b.i.d. 9. Levothyroxine 137 mcg p.o. daily. 10. Losartan 50 mg p.o. daily. 11. Tizanidine 4 mg t.i.d. p.r.n. CONTRAINDICATION: None. CODE STATUS: Full code. INPATIENT PRODUCT DEVELOPMENT ENGINEER: None. ALLERGIES: CODEINE, PHENOTHIAZINE. DISCHARGE PLAN: Posthospital, the patient will follow up with primary care physician. The patient will follow up with her orthopedic physician as instructed. The patient is discharged home with home health. HOSPITAL COURSE: 69-year-old female with above-mentioned medical problem, who was admitted by Gwendolyn Aviles. Please see her H and P for further details. The patient was brought to the ER for lethargy. The patient recently had left hip replacement in [place]. The patient was given pain medication and she was found lethargic. The patient was also having fever. Chest x-ray was normal. CT scan of chest was unremarkable other than atelectasis. She was on room air while in the hospital. Her leukocytosis improved. She remained afebrile while in hospital. Her urine culture came back positive for E coli. Her surgical site appeared clean and healthy. We advised her to follow up with orthopedic physician who did surgery. The patient will continue all her previous medications and we are discharging her on Omnicef 300 mg twice daily for another 7 days. We are arranging home health as well. The patient is seen and examined at bedside today. Please see my progress note from today for further detail. Job ID: [id number]
--- NOTE | 2019-11-17 08:44 | PQF ---
CLINICAL DOCUMENTATION CLARIFICATION FORM: Dear : Abigail Roth Date / Time: 11/17/19 2066 Please exercise your independent, professional judgment in responding to the clarification form. Clinical indicators are provided on the bottom of this form for your review Please check appropriate box(es): [ x] Sepsis due to UTI [ ] Severe sepsis due to UTI [ ] UTI without sepsis [ ] Other diagnosis [ ] Unable to determine In addition, please specify: Present on Admission (POA): [ x ] Yes [ ] No [ ] Unable to determine Physician Signature: Date/Time: For continuity of documentation, please document condition throughout progress notes and discharge summary. Thank You. To be completed by CDI/Coding staff for physician review: Present Clinical Indicators - Signs / Symptoms / Labs Results and Location in Medical Record [X] WBC 12.9, 13.0, Plt count 278, Neutrophils 67.2 Laboratory Hematology 11/11 [X] Urine Culture : Escherichia Coli Microbiology 11/11 [X] Blood culture: No growth at 48 hours Microbiology 11/11 [X] BP 171/75, Pulse 68, Resp 22, Temp 100 Vital signs 11/11 [X] SIRS scoring: Yes patient did met criteria ED notes p4 11/11 [X] She was febrile with temp of 100.1 and sats 92% on RA H&P p1 11/11 Aviles PA -C [X] Altered mental status H&P p3 11/11 Aviles PA-C [X] Fever, unknown site, on antibx HPN p4 11/12 Dr Bello [X] Metabolic encephalopathy HPN p1 11/13 Dr Byrnes [X] Fever with suspected UTI HPN p1 11/13 Dr Byrnes Present Risk Factors Results and Location in Medical Record [X] 69 year-old Female H&P p1 11/11 Aviles PA-C [X] Addisons H&P p1 11/11 Aviles PA-C [X] UTI HPN p1 11/13 Dr Byrnes Present Treatments Results and Location in Medical Record [X] IV Vancomycin 1 gm JUN 24 [X] IVF NS 1L JUN 24 [X] IV Maxipime 2 gm JUN 24 [X] Levaquin 500 mg oral JUN 24 [X] Urine Culture Microbiology 11/11 [X] Blood culture Microbiology 11/11 CDS/Spinning And Winding Supervisor Signature: Ara Rob Phone #: [phone] Date/Time: 11/17/19 0843 This is a permanent part of the Medical Record [facility]
== END 2019-11-16 18:10 | disposition home health service (06) | DRG 871 ==
LOC: ERS 17:05 → SURG B 19:53 → SURG A 11-13 15:54
PROVIDERS: ADMIT Internal Medicine; ATTEND Internal Medicine
DX: A41.51 Sepsis due to Escherichia coli [E. coli] (principal); G93.41 Metabolic encephalopathy; E27.1 Primary adrenocortical insufficiency; N39.0 Urinary tract infection, site not specified; M79.7 Fibromyalgia; E78.5 Hyperlipidemia, unspecified; E03.9 Hypothyroidism, unspecified; Z20.828 Contact with and (suspected) exposure to other viral communicable diseases; M19.90 Unspecified osteoarthritis, unspecified site; H40.9 Unspecified glaucoma; F32.9 Major depressive disorder, single episode, unspecified; Z96.642 Presence of left artificial hip joint; E87.6 Hypokalemia; R09.02 Hypoxemia; Z88.8 Allergy status to other drugs, medicaments and biological substances; Z90.49 Acquired absence of other specified parts of digestive tract; Z98.42 Cataract extraction status, left eye; Z98.41 Cataract extraction status, right eye; Z79.899 Other long term (current) drug therapy; Z79.890 Hormone replacement therapy
CPT/HCPCS: 36415; 36416; 51701; 70450; 71045; 71250; 80048; 80053; 80202; 81003; 81015; 82140; 82550; 83605; 83735; 84439; 84443; 85025; 85379; 87040; 87077; 87086; 87186; 96365; 96367; J0360; J0692; J1720; J1885; J3370; J3475; J3490; J7050; U0002

== ENCOUNTER 2022-08-11 14:17 | Inpatient (IN) | payer MEDICARE ==
[2022-08-11 15:45] LABS: #Lymphocytes 3.3 thou/uL (1.20-3.40); #Monocytes 1.6 thou/uL (0.11-0.59); #Neutrophils 6.8 thou/uL (1.40-6.50); %Basophils 0.1 % (0.0-1.0); %Eosinophils 0.3 % (0.0-10.0); %Lymphocytes 28.3 % (21.0-51.0); %Monocytes 13.4 % (0.0-10.0); Hemoglobin 14.9 g/dL (12.0-16.0); Mean Corpuscular HGB CONC 33.8 g/dL (32.0-36.0); Mean Corpuscular Hemoglobin 28.9 pg (27.0-31.0); Mean Corpuscular Volume 85.6 fl (78.0-98.0); Platelet Count 290 10x3/uL (130-400); RBC Distribution Width 13.4 % (11.5-14.5); Red Blood Cell (RBC) Count 5.15 mill/uL (4.20-5.40); White Blood Cell (WBC) Count 11.8 10x3/uL (4.8-10.8)
[2022-08-11 16:00] LABS: ALT (SGPT) 39 U/L (8-55); AST (SGOT) 98 U/L (5-34); Albumin 3.7 g/dL (3.4-4.8); Alkaline Phosphatase 61 U/L (40-110); Anion Gap 17 mmol/L (10-20); BUN (Urea Nitrogen) 15 mg/dL (9.8-20.1); Calc. Creatinine Clearance 0 mL/min (70-130); Carbon Dioxide 24 mmol/L (23-31); Chloride 104 mmol/L (98-107); Estimated GFR 78; Globulin 2.6 g/dL (2.4-3.5); Glucose 96 mg/dL (83-110); Potassium 3.3 mmol/L (3.5-5.1); Protein, Total 6.3 g/dL (5.8-8.1); Sodium 142 mmol/L (136-145)
[2022-08-11 16:18] LABS: CK (CPK) 7909 U/L (29-168)
[2022-08-11 16:26] LABS: CKMB 13.3 ng/mL (0-6.6)
[2022-08-11] MEDS ORDERED: Ondansetron PF 4 MG/2 ML Vial IVP PRN (19:21)
[2022-08-11] MEDS ORDERED: Ondansetron ODT 4 MG TAB PO PRN (19:21)
[2022-08-11] MEDS ORDERED: Calcium Carbonate 500 MG ChewTAB PO PRN (19:21)
[2022-08-11] MEDS ORDERED: Acetaminophen 325 MG TAB PO PRN (19:21)
[2022-08-11 20:11] LABS: Magnesium 1.6 mg/dL (1.6-2.6)
[2022-08-11] MEDS ORDERED: Aspirin 325 MG TAB ONE (20:31)
[2022-08-11] MEDS ORDERED: Magnesium 2 GM/50 ML(in water) 2 GM in Premix Bag 1 BAG IVPB SCH (20:45)
[2022-08-11] MEDS ORDERED: Potassium Chloride 20 MEQ TAB PO SCH (20:45)
[2022-08-11] MEDS ORDERED: TRAMADOL 300 MG PO SCH (21:00)
[2022-08-11] MEDS: Sodium Chloride 0.9% 1,000 ML IV SCH (21:57)
[2022-08-11] MEDS: tiZANidine HCl 4 MG TAB PO PRN (21:58)
[2022-08-12 02:22] VITALS: BMI 37.2
[2022-08-12] MEDS: Levothyroxine Sodium 25 MCG TAB PO SCH (04:44)
[2022-08-12] MEDS: Levothyroxine Sodium 112 MCG TAB PO SCH (04:44)
[2022-08-12] MEDS: Sodium Chloride 0.9% 1,000 ML IV SCH ×2 (04:50→15:40)
[2022-08-12 05:10] LABS: #Lymphocytes 2.8 thou/uL (1.20-3.40); #Monocytes 1.1 thou/uL (0.11-0.59); #Neutrophils 4.9 thou/uL (1.40-6.50); %Basophils 0.2 % (0.0-1.0); %Eosinophils 0.2 % (0.0-10.0); %Lymphocytes 31.1 % (21.0-51.0); %Monocytes 12.8 % (0.0-10.0); %Neutrophils 55.6 % (42.0-75.0); Hemoglobin 13.6 g/dL (12.0-16.0); Mean Corpuscular HGB CONC 34.8 g/dL (32.0-36.0); Mean Corpuscular Hemoglobin 29.5 pg (27.0-31.0); Mean Corpuscular Volume 84.8 fl (78.0-98.0); Mean Platelet Volume 8.4 fL (7.4-10.4); Platelet Count 256 10x3/uL (130-400); RBC Distribution Width 13.6 % (11.5-14.5); Red Blood Cell (RBC) Count 4.63 mill/uL (4.20-5.40); White Blood Cell (WBC) Count 8.9 10x3/uL (4.8-10.8)
[2022-08-12 05:17] LABS: ALT (SGPT) 38 U/L (8-55); AST (SGOT) 93 U/L (5-34); Albumin 3.2 g/dL (3.4-4.8); Alkaline Phosphatase 56 U/L (40-110); Anion Gap 15 mmol/L (10-20); BUN (Urea Nitrogen) 11 mg/dL (9.8-20.1); Bilirubin, Total 0.9 mg/dL (0.2-1.2); Calc. Creatinine Clearance 107 mL/min (70-130); Calcium 8.2 mg/dL (7.8-10.44); Carbon Dioxide 23 mmol/L (23-31); Chloride 108 mmol/L (98-107); Estimated GFR 88; Globulin 2.3 g/dL (2.4-3.5); Glucose 84 mg/dL (83-110); Potassium 3.5 mmol/L (3.5-5.1); Protein, Total 5.5 g/dL (5.8-8.1); Sodium 142 mmol/L (136-145)
[2022-08-12 06:02] LABS: CK (CPK) 5088 U/L (29-168)
[2022-08-12] MEDS: Hydrocortisone 10 mg Tablet PO SCH (10:39)
[2022-08-12] MEDS: Citalopram 20 MG TAB PO SCH (10:40)
[2022-08-12] MEDS: Fludrocortisone Acetate 0.1 MG TAB PO SCH (10:52)
[2022-08-12] MEDS: tiZANidine HCl 4 MG TAB PO PRN ×2 (10:52→20:18)
[2022-08-12] MEDS: HYDROcodone/Acetaminophen 5/325 mg Tablet PO PRN (20:17)
[2022-08-13] MEDS: Sodium Chloride 0.9% 1,000 ML IV SCH ×4 (00:28→22:10)
[2022-08-13 05:21] LABS: Anion Gap 12 mmol/L (10-20); BUN (Urea Nitrogen) 11 mg/dL (9.8-20.1); CK (CPK) 2426 U/L (29-168); Calc. Creatinine Clearance 114 mL/min (70-130); Calcium 7.7 mg/dL (7.8-10.44); Carbon Dioxide 24 mmol/L (23-31); Chloride 108 mmol/L (98-107); Estimated GFR 92; Glucose 92 mg/dL (83-110); Potassium 3.7 mmol/L (3.5-5.1); Sodium 140 mmol/L (136-145)
[2022-08-13] MEDS: Levothyroxine Sodium 112 MCG TAB PO SCH (06:08)
[2022-08-13] MEDS: Levothyroxine Sodium 25 MCG TAB PO SCH (06:08)
[2022-08-13] MEDS: Hydrocortisone 10 mg Tablet PO SCH (10:39)
[2022-08-13] MEDS: Citalopram 20 MG TAB PO SCH (10:39)
[2022-08-13] MEDS: traMADol HCl 50 MG TAB PO PRN (10:41)
[2022-08-13] MEDS: Fludrocortisone Acetate 0.1 MG TAB PO SCH (13:53)
[2022-08-13] MEDS: HYDROcodone/Acetaminophen 5/325 mg Tablet PO PRN (21:57)
[2022-08-14] MEDS ORDERED: hydrALAZINE 20 MG/ML VIAL SLOW IVP SCH (00:15)
[2022-08-14] MEDS ORDERED: Sodium Chloride 0.9% 1,000 ML IV SCH (01:00)
[2022-08-14] MEDS ORDERED: cloNIDine 0.1 MG TAB PO SCH ×2 (02:15→09:00)
[2022-08-14] MEDS: traMADol HCl 50 MG TAB PO PRN (02:33)
[2022-08-14 05:30] LABS: Anion Gap 13 mmol/L (10-20); BUN (Urea Nitrogen) 5 mg/dL (9.8-20.1); CK (CPK) 1373 U/L (29-168); Calc. Creatinine Clearance 124 mL/min (70-130); Calcium 8.3 mg/dL (7.8-10.44); Carbon Dioxide 23 mmol/L (23-31); Chloride 108 mmol/L (98-107); Estimated GFR 93; Glucose 82 mg/dL (83-110); Potassium 3.2 mmol/L (3.5-5.1); Sodium 141 mmol/L (136-145)
[2022-08-14] MEDS: Levothyroxine Sodium 25 MCG TAB PO SCH (05:54)
[2022-08-14] MEDS: Levothyroxine Sodium 112 MCG TAB PO SCH (05:54)
[2022-08-14] MEDS: Hydrocortisone 10 mg Tablet PO SCH (09:30)
[2022-08-14] MEDS: Citalopram 20 MG TAB PO SCH (09:30)
[2022-08-14] MEDS: Fludrocortisone Acetate 0.1 MG TAB PO SCH (09:31)
[2022-08-14] MEDS ORDERED: Meclizine HCl 25 MG TAB PO PRN (09:54)
[2022-08-14] MEDS ORDERED: DIPHENHYDRAMINE HCL 25 MG PO PRN (09:54)
[2022-08-14] MEDS ORDERED: diphenhydrAMINE 25 MG CAP PO PRN (10:00)
[2022-08-14] MEDS ORDERED: Carvedilol 6.25 MG TAB PO SCH (10:00)
[2022-08-14] MEDS: Carvedilol 6.25 MG TAB PO SCH (16:39)
[2022-08-14] MEDS ORDERED: Atorvastatin Calcium 40 MG TAB PO SCH (21:00)
[2022-08-15 05:13] LABS: Anion Gap 13 mmol/L (10-20); BUN (Urea Nitrogen) 8 mg/dL (9.8-20.1); CK (CPK) 493 U/L (29-168); Calc. Creatinine Clearance 113 mL/min (70-130); Calcium 8.5 mg/dL (7.8-10.44); Carbon Dioxide 26 mmol/L (23-31); Chloride 106 mmol/L (98-107); Estimated GFR 91; Glucose 83 mg/dL (83-110); Potassium 3.6 mmol/L (3.5-5.1); Sodium 141 mmol/L (136-145)
[2022-08-15] MEDS: Levothyroxine Sodium 25 MCG TAB PO SCH (05:30)
[2022-08-15] MEDS: Levothyroxine Sodium 112 MCG TAB PO SCH (05:30)
[2022-08-15] MEDS ORDERED: Non-Formulary Item 1 EACH (Atorvastatin Calcium [Atorvastatin Calcium] 80 MG Tablet) PO SCH (09:00)
[2022-08-15] MEDS: Hydrocortisone 10 mg Tablet PO SCH (09:28)
[2022-08-15] MEDS: Carvedilol 6.25 MG TAB PO SCH (09:29)
[2022-08-15] MEDS: Citalopram 20 MG TAB PO SCH (09:29)
[2022-08-15] MEDS: Fludrocortisone Acetate 0.1 MG TAB PO SCH (09:30)
[2022-08-15 16:49] VITALS: BP 140/68; TEMP 97.8
== END 2022-08-15 16:45 | disposition home health service (06) | DRG 564 ==
LOC: ERS 14:17 → ERHOLD 18:50 → 2NO 21:19
PROVIDERS: ADMIT Student in an Organized Health Care Education/Training Program; ATTEND Hospitalist
DX: T79.6XXA Traumatic ischemia of muscle, initial encounter (principal); I21.A1 Myocardial infarction type 2; E27.1 Primary adrenocortical insufficiency; W18.30XA Fall on same level, unspecified, initial encounter; M79.7 Fibromyalgia; E03.9 Hypothyroidism, unspecified; E78.5 Hyperlipidemia, unspecified; M19.90 Unspecified osteoarthritis, unspecified site; E87.6 Hypokalemia; E83.42 Hypomagnesemia; Z60.2 Problems related to living alone; F32.A Depression, unspecified; G89.29 Other chronic pain; E86.0 Dehydration; M54.9 Dorsalgia, unspecified; Z79.899 Other long term (current) drug therapy; Y93.H2 Activity, gardening and landscaping; Z79.890 Hormone replacement therapy; Z88.6 Allergy status to analgesic agent; Z88.8 Allergy status to other drugs, medicaments and biological substances; Z90.49 Acquired absence of other specified parts of digestive tract; Z90.89 Acquired absence of other organs; Z98.41 Cataract extraction status, right eye; Z98.42 Cataract extraction status, left eye; Y92.007 Garden or yard of unspecified non-institutional (private) residence as the place of occurrence of the external cause
CPT/HCPCS: 36415; 36416; 71260; 74177; 80048; 80053; 82550; 82553; 83605; 83735; 83880; 84484; 85025; 93005; J0360; J3475; J7050; Q0162